=== PATIENT | female | born 1970 | race Two or more races ===

== ENCOUNTER → 2024-05-22 | Outpatient (CLI) | payer MEDICAID, SELFPAY ==
--- NOTE | 2024-05-22 13:00 | XR_ITS ---
Examination: Pelvic ultrasound, transabdominal, complete Technique: Transabdominal ultrasound of the pelvis performed using grayscale imaging Date and time of exam: May 22, 2024 1305 hours INDICATIONS: Postmenopausal bleeding history, fluid in the endometrial canal on prior pelvic sonogram FINDINGS: Uterus 8.7 x 3.2 x 5.5 cm Endometrial stripe 0.8 cm No uterine mass Right ovary 2.3 x 1.5 cm arterial flow Left ovary 2.5 x 2.4 cm arterial flow IMPRESSION: Thickened endometrial stripe 0.8 cm, suggest continued 3 month follow-up transvaginal pelvic sonography
--- NOTE | 2024-05-22 13:00 | XR_ITS ---
Examination: Transvaginal ultrasound of the pelvis, complete Technique: Transvaginal sonographic images pelvis performed using gomez scale imaging Exam date and time: May 22, 2024 1320 hours INDICATIONS: Irregular menses 5 years, thickened endometrial stripe 0.9 cm on pelvic sonogram 02/21/2024 FINDINGS: Uterus 8.2 x 4.3 x 3.3 cm Endometrial stripe 1.1 cm No uterine mass or intrauterine gestation Right ovary 2.8 x 1.6 x 2.4 cm arterial flow Left ovary 1.9 x 1.4 x 1.5 cm arterial flow IMPRESSION:: Abnormally thickened stripe if the patient is postmenopausal As clinically warranted, MRI pelvis pre and post contrast follow-up would best assess for endometrial hyperplasia, early malignant neoplasm endometrium
== END | disposition home or self-care (01) ==
LOC: CDIM 12:45
PROVIDERS: PCP Nurse Practitioner Primary Care; Referring Provider Obstetrics & Gynecology; Visit Provider Obstetrics & Gynecology
DX: R93.89 Abnormal findings on diagnostic imaging of other specified body structures (principal)
CPT/HCPCS: 76830; 76856

== ENCOUNTER → 2025-04-11 | Outpatient (CLI) | payer SELFPAY ==
--- NOTE | 2025-04-11 11:30 | XR_ITS ---
Examination: Screening digital mammography, bilateral Computer aided detection 3-D breast Tomosynthesis, bilateral Date and time of exam: April 11, 2025, 1059 hours, compared to mammogram dated 13 December [id number] Indication: Screening Technique: Nonmagnified MLO, CC views of the breasts to been obtained, reconstructed from 3-D Tomosynthesis images. R2 computer aided detection program utilized for evaluation of suspicious masses and/or abnormal calcifications. 3-D Tomosynthesis images obtained. Findings: Scattered areas of fibroglandular density. 5 mm nodule upper inner right breast anterior depth Benign calcifications Impression: BI-RADS Category 0: Incomplete: Need additional imaging evaluation Recommend follow-up spot tomographic views of 5 mm nodule upper inner right breast as well as bilateral breast sonography to complete the work-up
== END | disposition home or self-care (01) ==
PROVIDERS: PCP Nurse Practitioner Primary Care; Referring Provider Nurse Practitioner Primary Care; Visit Provider Nurse Practitioner Primary Care
DX: Z12.31 Encounter for screening mammogram for malignant neoplasm of breast (principal); N63.12 Unspecified lump in the right breast, upper inner quadrant; R92.8 Other abnormal and inconclusive findings on diagnostic imaging of breast
CPT/HCPCS: 77063; 77067